=== PATIENT | female | born 1995 | race African-American/Black ===

== ENCOUNTER 2018-02-05 21:20 | Emergency (ER) | payer MEDICAID ==
[~2018-02-05] VITALS: Ht 165.1 cm; Wt 46.5 kg
[2018-02-05 21:46] VITALS: BP 123/67; PULSE 115; RESP 18; TEMP 102; O2SAT 98
[2018-02-05] MEDS ORDERED: OSEL75 PO (22:34)
[2018-02-05] MEDS ORDERED: ACETAMINOPHEN 500 MG CPLT PO ONE (22:45)
--- NOTE | 2018-02-05 22:54 | PD ---
HPI Chief Complaint: Cold / Flu Symptoms Time Seen by Provider: 22:26 Travel History International Travel<30 days: No Contact w/Intl Traveler<30days: No Traveled to known affect area: No History of Present Illness HPI 22-year-old female presents to the emergency department for evaluation of body aches, cough, congestion, fever, chills and sweats that have been present for approximately 2 days. She says that she has been around sick coworkers and likely picked up this illness from them. She denies chronic medical issues or medication use. Says she is used allergy medications for her symptoms however, this has not been helpful. She has not taken Tylenol or Motrin for her fever or body aches. [facility] Past Medical History Medical History: Denies Significant Hx Influenza Vaccination: No ?: Not LMP: 02/05/18 Past Surgical History Tympanostomy Tube: Yes Social History Alcohol Use: Yes (rarely) Tobacco Use: No Substance Use: No Allergies-Medications (Allergen,Severity, Reaction): Coded Allergies: No Known Drug Allergies (Verified Allergy, Unknown, 02/05/18) Reported Meds & Prescriptions Reported Meds & Active Scripts Active Tamiflu (Oseltamivir Phosphate) 75 Mg Cap 75 Mg PO BID 5 Days Review of Systems Except as stated in HPI: all other systems reviewed are Neg Physical Exam Narrative GENERAL: Well-nourished, well-developed patient, in NAD SKIN: Focused skin assessment warm/dry. No rashes or lesions. HEAD: Normocephalic. Atraumatic. EYES: No scleral icterus. No injection or drainage. PERRLA, EOMI TMs pearly soto without bulging or erythema. THROAT: No pharyngeal injection, exudates, or tonsillar hypertrophy. Airway is patent. NECK: Supple, trachea midline. No JVD or lymphadenopathy. No meningismus. CARDIOVASCULAR: Regular rate and rhythm without murmurs, gallops, or rubs. RESPIRATORY: Breath sounds equal bilaterally. No accessory muscle use. No wheezes, rales, or rhonchi MUSCULOSKELETAL: No cyanosis, or edema. BACK: Nontender without obvious deformity. No CVA tenderness. Data Data Last Documented VS Vital Signs Date Time Temp Pulse Resp B/P (MAP) Pulse Ox O2 Delivery O2 Flow Rate FiO2 02/05/18 23:12 99.5 02/05/18 21:46 115 18 123/67 (85) 98 Orders Orders Acetaminophen (Tylenol) (02/05/18 22:45) Ed Discharge Order (02/05/18 23:04) [facility] Medical Decision Making Medical Screen Exam Complete: Yes Emergency Medical Condition: Yes Differential Diagnosis influenza, URI, pneumonia, bronchitis, pneumonitis, bronchospasm Narrative Course 22-year-old female presents to the emergency department for evaluation of body aches, nonproductive cough, congestion, fever, chills and sweats that have been present for approximately 2 days. She says that she has been around sick coworkers and likely picked up this illness from them. Denies shortness of breath or chest pain. She denies chronic medical issues or medication use. Says she is used allergy medications for her symptoms however, this has not been helpful. She has not taken Tylenol or Motrin for her fever or body aches. Vital signs: Temp 102, heart rate 115, blood pressure 123/67. Physical exam findings essentially unremarkable. Tylenol administered for fever. We discussed treatment options versus testing. Patient has signed symptoms of the flu. The patient is just within the window of treating with Tamiflu, pt will receive Tamiflu for outpatient use. Advised to use Tylenol or Motrin for fever/chills/ body aches. Diagnosis Primary Impression: Viral syndrome Referrals: [facility] Additional Instructions: Take all medications as prescribed. You may alternate tylenol and motrin for fever, per package instructions. Use cooling techniques such as placing cool rags in the armpits or legs to reduce fever. Take all medications as prescribed. Follow up with your primary physician within 2-3 days. Return to the emergency department for worsening or uncontrolled fever. Scripts Oseltamivir (Tamiflu) 75 Mg Cap 75 MG PO BID for Mgmt Viral Infection for 5 Days, #10 CAP 0 Refills Prov: Ezra Ruth MD 02/05/18 Disposition: 01 DISCHARGE HOME Condition: Stable Rahel Molina Feb 05, 2018 22:54
[2018-02-05 23:12] VITALS: TEMP 99.5
== END 2018-02-05 23:28 | disposition home or self-care (01) ==
LOC: NEPC 21:20
DX: B34.9 Viral infection, unspecified (principal); R05 Cough; R50.9 Fever, unspecified; R52 Pain, unspecified
CPT/HCPCS: 99283